=== PATIENT | male | born 1990 | race Caucasian/White ===

== ENCOUNTER 2017-07-21 12:56 | Outpatient (CLI) | payer OTHER | END 2017-07-21 12:57 | disposition home or self-care (01) | LOC: SC 12:56 | PROVIDERS: ATTEND Internal Medicine Pulmonary Disease | DX: G47.10 Hypersomnia, unspecified (principal); G47.8 Other sleep disorders; R06.83 Snoring | CPT/HCPCS: 99203; 99212 ==

== ENCOUNTER 2017-07-24 22:11 | Outpatient (CLI) | payer OTHER | END 2017-07-24 22:12 | disposition home or self-care (01) | LOC: SC 22:11 | PROVIDERS: ATTEND Internal Medicine Pulmonary Disease | DX: G47.61 Periodic limb movement disorder (principal) | CPT/HCPCS: 95810 ==